=== PATIENT | male | born 1995 | race Caucasian/White ===

== ENCOUNTER 2021-10-16 19:18 | Emergency (ER) | payer OTHER ==
[~2021-10-16 19:18] MED LIST: CIPRO500 MG PO; FLAGYL500 MG PO; TYLENOL 8 HOUR650 MG PO
== END 2021-10-16 20:08 | disposition left against medical advice (07) ==
LOC: ER1 19:18
DX: Z53.21 Procedure and treatment not carried out due to patient leaving prior to being seen by health care provider (principal)